=== PATIENT | female | born 1990 | race Two or more races ===

== ENCOUNTER 2018-03-25 16:48 | Emergency (ER) | payer OTHER ==
[~2018-03-25] VITALS: Ht 160 cm; Wt 88.5 kg
[~2018-03-25 16:48] MED LIST: ONDA4TAB10 SL; PANT40TA3 PO
[2018-03-25 17:00] VITALS: BP 137/79
[2018-03-25] MEDS ORDERED: CYCL10TA2 PO (17:45)
[2018-03-25] MEDS ORDERED: HYDR-971 PO (17:45)
[2018-03-25] MEDS ORDERED: NAPR-683 PO (17:45)
--- NOTE | 2018-03-25 17:45 | PHYS DOC ---
Past Medical History Past Medical History: No Pertinent History Past Surgical History: , Other Additional Past Surgical Histo: ovarian cyst removal Additional Information: Nonsmoker Alcohol Use: None Drug Use: None Adult General Chief Complaint Chief Complaint: LOWER BACK PAIN OR INJURY [facility] HPI Patient is a 28 year old female who presents with complaining of low back pain for 1 week. Patient complaining of intermittent episodes of low back pain with radiation to back of right thigh for 1 week that became more constant and getting worse today. Patient states the pain getting worse with movement and bending over. Patient states the pain is sharp and rated her pain 8/10. She denies urinary symptoms, fever and chills, back injury, history of back pain, urine and bowel incontinence, abdominal pain, focal neuro deficit. Patient states she took Advil today without improvement of her pain. Patient has history of hysterectomy. Review of Systems Review of Systems Constitutional: Denies fever or chills [] Eyes: Denies change in visual acuity, redness, or eye pain [] HENT: Denies nasal congestion or sore throat [] Respiratory: Denies cough or shortness of breath [] Cardiovascular: No additional information not addressed in HPI [] GI: Denies abdominal pain, nausea, vomiting, bloody stools or diarrhea [] : Denies dysuria or hematuria [] Musculoskeletal: Reports back pain, denies joint pain [] Integument: Denies rash or skin lesions [] Neurologic: Denies headache, focal weakness or sensory changes [] Endocrine: Denies polyuria or polydipsia [] All other systems were reviewed and found to be within normal limits, except as documented in this note. Current Medications Current Medications Current Medications Medications (Trade) Dose Ordered Sig/[facility] Start Time Stop Time Status Last Admin Dose Admin Acetaminophen/ Hydrocodone Bitart (Lortab 5/325) 1 tab 1X ONCE 03/25/18 18:00 03/25/18 18:01 DC 03/25/18 17:51 1 TAB Allergies Allergies Allergies Coded Allergies Type Severity Reaction Last Updated Verified No Known Drug Allergies 03/17/14 No Physical Exam Physical Exam Constitutional: Well developed, well nourished, mild distress, non-toxic appearance. [] HENT: Normocephalic, atraumatic. Eyes: PERRLA, EOMI, conjunctiva normal, no discharge. [] Neck: Normal range of motion, no tenderness, supple, no stridor. [] Cardiovascular:Heart rate regular rhythm, no murmur [] Lungs & Thorax: Bilateral breath sounds clear to auscultation [] Abdomen: Bowel sounds normal, soft, no tenderness, no masses, no pulsatile masses. [] Skin: Warm, dry, no erythema, no rash. [] Back: No midline tenderness, right paraspinal spasm and painfull range of motion , no CVA tenderness. [] Extremities: No tenderness, no cyanosis, no clubbing, ROM intact, no edema. [] Neurologic: Alert and oriented X 3, normal motor function, normal sensory function, no focal deficits noted. [] Psychologic: Affect normal, judgement normal, mood normal. [] Current Patient Data Vital Signs Vital Signs Date Time Temp Pulse Resp B/P (MAP) Pulse Ox O2 Delivery O2 Flow Rate FiO2 03/25/18 17:51 14 98 03/25/18 17:00 98.3 87 137/79 (98) Room Air 98.3 EKG EKG [] Radiology/Procedures Radiology/Procedures [] Course & Med Decision Making Course & Med Decision Making Evaluation of patient in ER showed 28-year-old female patient with complaining of low back pain intermittently for 1 week that getting more constant and painfull today. Patient had right paraspinal muscle spasm. Patient had history of hysterectomy and denied urinary symptom. Patient treated with [place] in ER and plan to discharge home with prescription of Flexeril and Naprosyn and [place]. Dragon Disclaimer Dragon Disclaimer This electronic medical record was generated, in whole or in part, using a voice recognition dictation system. Departure Departure Impression: Primary Impression: Acute lumbosacral myofascial strain Disposition: 01 HOME, SELF-CARE (at 1745) Condition: STABLE Referrals: MARICARMEN HUTSON (PCP) Patient Instructions: Lumbosacral Strain Additional Instructions: Apply ice on the back Follow-up with your primary care physician in 3-5 days Return to ER if not getting better Scripts Naproxen (NAPROSYN) 500 Mg Tablet 1 TAB PO BID for pain, #20 TAB Prov: XU SOLIS MD 03/25/18 Hydrocodone/Apap 5-325 (NORCO 5-325 TABLET) 1 Each Tablet 1 TAB PO PRN Q6HRS PRN for PAIN, #10 TAB 0 Refills Prov: XU SOLIS MD 03/25/18 Cyclobenzaprine Hcl (CYCLOBENZAPRINE HCL) 10 Mg Tablet 1 TAB PO TID for muscle pain, #30 TAB Prov: XU SOLIS MD 03/25/18 XU SOLIS MD Mar 25, 2018 17:45
[2018-03-25] MEDS ORDERED: HYDROcodone/APAP 5/325MG 1 TAB TABLET PO ONE (18:00)
== END 2018-03-25 17:56 | disposition home or self-care (01) ==
LOC: ER 16:48
DX: S33.5XXA Sprain of ligaments of lumbar spine, initial encounter (principal); Z90.710 Acquired absence of both cervix and uterus; X58.XXXA Exposure to other specified factors, initial encounter; Y93.89 Activity, other specified; Y92.89 Other specified places as the place of occurrence of the external cause; Y99.8 Other external cause status
CPT/HCPCS: 99283

== ENCOUNTER 2019-12-18 23:07 | Emergency (ER) | payer OTHER ==
[~2019-12-18] VITALS: Ht 160 cm; Wt 97.7 kg
[~2019-12-18 23:07] MED LIST changes: +CYCL10TA2 PO; +HYDR-3164 PO; +NAPR-683 PO; -PANT40TA3 PO; +PANT40TA77 PO
--- NOTE | 2019-12-18 23:47 | PHYS DOC ---
Past Medical History Past Medical History: No Pertinent History Past Surgical History: , Other Additional Past Surgical Histo: ovarian cyst removal, PARTIAL HYSTERECTOMY, WISDOME TEETH REMOVAL Smoking Status: Never Smoker Alcohol Use: None Drug Use: None General Adult EDM: Chief Complaint: FLANK PAIN HPI: HPI: Patient is a 29 year old female presents with 3-day history of right upper quadrant pain. Patient states the pain is pinching and stabbing and radiates to her back and into her right lower quadrant. Patient states she has had the pain frequently over the past but is more severe and more persistent this time. When she was in 2010 she was told she has gallstones. Patient has nausea but no fevers, chills, cough no shortness of breath. No urinary symptoms. Pain is currently 8 out of 10. Review of Systems: Review of Systems: Constitutional: Denies fever or chills. [] Eyes: Denies change in visual acuity. [] HENT: Denies nasal congestion or sore throat. [] Respiratory: Denies cough or shortness of breath. [] Cardiovascular: Denies chest pain or edema. [] GI: Complains of abdominal pain and nausea but no diarrhea : Denies dysuria. [] Musculoskeletal: Complains of right thoracic pain Integument: Denies rash. [] Neurologic: Denies headache, focal weakness or sensory changes. [] Endocrine: Denies polyuria or polydipsia. [] Lymphatic: Denies swollen glands. [] Psychiatric: Denies depression or anxiety. [] Heart Score: Risk Factors: Risk Factors: DM, Current or recent (<one month) smoker, HTN, HLP, family history of CAD, obesity. Risk Scores: Score 0 - 3: 2.5% MACE over next 6 weeks - Discharge Home Score 4 - 6: 20.3% MACE over next 6 weeks - Admit for Clinical Observation Score 7 - 10: 72.7% MACE over next 6 weeks - Early Invasive Strategies Current Medications: Current Medications Medications (Trade) Dose Ordered Sig/Uli Start Time Stop Time Status Last Admin Dose Admin Ketorolac Tromethamine (Toradol 15mg Vial) 15 mg 1X ONCE 12/19/19 00:00 12/19/19 00:01 Morphine Sulfate (Morphine Sulfate) 2 mg PRN Q15MIN PRN 12/18/19 23:45 12/19/19 23:44 Ondansetron HCl (Zofran) 4 mg 1X ONCE 12/19/19 00:00 12/19/19 00:01 Sodium Chloride 1,000 ml @ 1,000 mls/hr Q1H 12/19/19 00:00 12/19/19 00:59 Allergies: Allergies: Allergies Coded Allergies Type Severity Reaction Last Updated Verified No Known Drug Allergies 03/17/14 No Physical Exam: PE: Constitutional: Well developed, well nourished, no acute distress, non-toxic appearance. [] HENT: Normocephalic, atraumatic, bilateral external ears normal, no trismus nose normal. [] Eyes: PERRLA, EOMI, conjunctiva normal, no discharge. [] Neck: Normal range of motion, no tenderness, supple, no stridor. [] Cardiovascular:Heart rate regular rhythm, Lungs & Thorax: No respiratory distress Abdomen: , soft, tender to palpate right upper quadrant with mild guarding but no rebound no masses, no pulsatile masses. [] Skin: Warm, dry, no erythema, no rash. [] Back: No tenderness, no CVA tenderness. [] Extremities: No tenderness, no cyanosis, no clubbing, ROM intact, no edema. [] Neurologic: Alert and oriented X 3, normal motor function, normal sensory function, no focal deficits noted. [] Psychologic: Affect normal, judgement normal, mood normal. [] Current Patient Data: Labs: Laboratory Tests Test 12/18/19 23:23 12/18/19 23:34 12/18/19 23:55 12/19/19 00:31 Urine Collection Type Unknown Urine Color Yellow Urine Clarity Clear Urine pH 6.0 Urine Specific [place] 1.020 Urine Protein Negative mg/dL Urine Glucose (UA) Negative mg/dL Urine Ketones (Stick) Negative mg/dL Urine Blood Large Urine Nitrite Negative Urine Bilirubin Negative Urine Urobilinogen Dipstick 0.2 mg/dL Urine Leukocyte Esterase Negative Urine RBC 20-40 /HPF Urine WBC 1-4 /HPF Urine Squamous Epithelial Cells Mod /LPF Urine Bacteria Few /HPF Urine Mucus Mod /LPF Bedside Urine HCG, Qualitative Hcg negative White Blood Count 10.5 x10^3/uL Red Blood Count 4.57 x10^6/uL Hemoglobin 14.2 g/dL Hematocrit 41.6 % Mean Corpuscular Volume 91 fL Mean Corpuscular Hemoglobin 31 pg Mean Corpuscular Hemoglobin Concent 34 g/dL Red Cell Distribution Width 13.4 % Platelet Count 355 x10^3/uL Neutrophils (%) (Auto) 54 % Lymphocytes (%) (Auto) 36 % Monocytes (%) (Auto) 7 % Eosinophils (%) (Auto) 2 % Basophils (%) (Auto) 1 % Neutrophils # (Auto) 5.7 x10^3/uL Lymphocytes # (Auto) 3.8 x10^3/uL Monocytes # (Auto) 0.7 x10^3/uL Eosinophils # (Auto) 0.2 x10^3/uL Basophils # (Auto) 0.1 x10^3/uL Sodium Level 138 mmol/L Potassium Level 3.6 mmol/L Chloride Level 102 mmol/L Carbon Dioxide Level 27 mmol/L Anion Gap 9 Blood Urea Nitrogen 13 mg/dL Creatinine 0.7 mg/dL Estimated GFR (Cockcroft-Gault) 98.9 BUN/Creatinine Ratio 19 Glucose Level 94 mg/dL Calcium Level 9.6 mg/dL Total Bilirubin 0.4 mg/dL Aspartate Amino Transf (AST/SGOT) 33 U/L Alanine Aminotransferase (ALT/SGPT) 63 U/L Alkaline Phosphatase 118 U/L Total Protein 8.3 g/dL Albumin 3.9 g/dL Albumin/Globulin Ratio 0.9 Lipase 172 U/L Current Medications Medications (Trade) Dose Ordered Sig/Uli Route PRN Reason Start Time Stop Time Status Last Admin Dose Admin Morphine Sulfate (Morphine Sulfate) 2 mg PRN Q15MIN PRN IV/SQ PAIN GREATER THAN 3/10 12/18/19 23:45 12/19/19 02:45 DC 12/19/19 00:14 Sodium Chloride 1,000 ml @ 1,000 mls/hr Q1H IV 12/19/19 00:00 12/19/19 00:59 DC 12/19/19 00:11 Ondansetron HCl (Zofran) 4 mg 1X ONCE IVP 12/19/19 00:00 12/19/19 00:01 DC 12/19/19 00:11 Ketorolac Tromethamine (Toradol 15mg Vial) 15 mg 1X ONCE IVP 12/19/19 00:00 12/19/19 00:01 DC 8/5/20 00:12 Laboratory Tests Test 12/18/19 23:34 POC Urine HCG, Qualitative Hcg negative (Negative) Vital Signs: Vital Signs Date Time Temp Pulse Resp B/P (MAP) Pulse Ox O2 Delivery O2 Flow Rate FiO2 12/19/19 00:14 16 100 Room Air 12/18/19 23:36 98.5 78 16 132/74 (93) 100 Room Air 98.5 EKG: EKG: [] Radiology/Procedures: Radiology/Procedures: [][facility] [address] [place] [address] IMAGING REPORT Signed PATIENT: KAYCE JADE I ACCOUNT: [id number] : 1990 LOCATION: ER AGE: 29 SEX: F EXAM STATUS: REG ER ORD. PHYSICIAN: ADILIA GREGORY MD REASON: ruq PROCEDURE: ABDOMEN LTD INDICATION : Reason: ruq / Spl. Instructions: / History: COMPARISON: None TECHNIQUE: Multiple ultrasound images obtained through the abdomen in grayscale and color. FINDINGS: Liver: Echogenic. Portions are not well seen secondary to poor beam penetration. Gallbladder: Gallstones. IVC: Partially distended at level of liver. Common Bile Duct: 8 mm Pancreas: Largely obscured by bowel gas Right Kidney: No hydronephrosis. IMPRESSION: * Gallstones are visualized within the gallbladder. The patient does have some tenderness in the right upper quadrant. Would correlate with symptoms of cholecystitis given this finding and if further evaluation is desired nuclear hepatobiliary scan could further assess. * Liver is echogenic which can be seen with fatty infiltration. Electronically signed by: Katrin Connell MD (12/19/2019 12:37 AM) [id number] DICTATED and SIGNED BY: KATRIN CONNELL MD DATE: 12/19/19 0037 Course & Med Decision Making: Course & Med Decision Making Pertinent Labs and Imaging studies reviewed. (See chart for details) [] Patient reassessed at 1:50 AM. Patient feels significantly better. Patient has symptomatic cholelithiasis. No evidence of cholecystitis or biliary obstruction. Patient will be given referrals to a general surgeon. Return precautions have been given. Dragon Disclaimer: Kylie Disclaimer: This electronic medical record was generated, in whole or in part, using a voice recognition dictation system. Departure Departure Impression: Primary Impression: Symptomatic cholelithiasis Additional Impression: Right upper quadrant pain Disposition: 01 HOME, SELF-CARE Condition: STABLE Referrals: NO PCP (PCP) QUIANA BAUTISTA MD 2-3 days Patient Instructions: Biliary Colic Additional Instructions: EMERGENCY DEPARTMENT GENERAL DISCHARGE INSTRUCTIONS THANK YOU for coming to [facility] Emergency Department (ED) today and trusting us with your care. We trust that you had a positive experience in our Emergency Department. If you wish to speak to the department Management you can contact the roving department end finder at . YOUR FOLLOW UP INSTRUCTIONS ARE FOLLOWS: Do you have a private doctor? If you do not have a private doctor, please ask for a resource list of physicians or clinics that may be able to assist you with follow up care. The Emergency Physician has interpreted your x-rays. The X-ray specialist will also review them. If there is a change in the findings you will be notified in 48 hours when at all possible. A lab test or lab culture may have been done, your results will be reviewed and you will be notified if you need a change in treatment. ADDITIONAL INSTRUCTIONS AND INFORMATION Your care today has been supervised by a physician who is specially trained in emergency care. Many problems require more than one evaluation for a complete diagnosis and treatment. We recommend that you schedule your follow up appointment as recommended to ensure complete treatment of your illness or injury. If you are unable to obtain follow up care and continue to have a problem, or if your condition worsens we recommend that you return to the ED. We are not able to safely determine your condition over the phone nor are we able to give sound medical advice over the phone. For these safety reasons, if you call for medical advice we will ask you to come to the ED for further evaluation If you have any questions regarding these discharge instructions please call the ED at . SAFETY INFORMATION In the interest of safety, wellness, and injury prevention; we encourage you to wear your seatbelt, if you smoke; quit smoking, and we encourage your family to use protective helmet for bicycling and other sporting events that present an increased risk for head injury. IF YOUR SYMPTOMS WORSEN OR NEW SYMPTOMS DEVELOP, OR YOU HAVE CONCERNS ABOUT YOUR CONDITION; OR IF YOUR CONDITION WORSENS WHILE YOU ARE WAITING FOR YOUR FOLLOW UP APPOINTMENT; EITHER CONTACT YOUR PRIMARY CARE DOCTOR, THE PHYSICIAN WHOSE NAME AND NUMBER YOU WERE GIVEN, OR RETURN TO THE ED IMMEDIATELY. Scripts Ondansetron Hcl (ZOFRAN) 4 Mg Tablet 1 TAB PO PRN Q6-8HRS PRN for NAUSEA/VOMITING, #12 TAB Prov: ADILIA GREGORY MD 12/19/19 Hydrocodone/Apap 5-325 (NORCO 5-325 TABLET) 1 Each Tablet 1-2 EACH PO PRN Q6HRS PRN for PAIN, #15 as needed for pain Prov: ADILIA GREGORY MD 12/19/19 Justicifation of Admission Dx: Justifications for Admission: Justification of Admission Dx: N/A ADILIA GREGORY MD Dec 18, 2019 23:47
[2019-12-18 23:49] LABS: BILIRUBIN,URINE NEGATIVE (NEG); CLARITY,URINE CLEAR; COLOR,URINE YELLOW; NITRITE,URINE NEGATIVE (NEG); PROTEIN,URINE NEGATIVE (NEG-TRACE); UROBILINOGEN,URINE 0.2 mg/dL (0.2 mg/dL)
[2019-12-18 23:54] LABS: BACTERIA,URINE FEW /HPF (0-FEW); RBC,URINE 20-40 /HPF (0-2); SQUAMOUS EPITHELIAL CELL,UR MOD /LPF
[2019-12-19 00:05] LABS: BASO # 0.1 x10^3/uL (0.0-0.2); BASO % 1 % (0-3); EOS # 0.2 x10^3/uL (0.0-0.7); EOS % 2 % (0-3); HEMATOCRIT 41.6 % (36.0-47.0); HEMOGLOBIN 14.2 g/dL (12.0-15.5); LYMPH # 3.8 x10^3/uL (1.0-4.8); LYMPH % 36 % (24-48); MEAN CORPUSCULAR HEMOGLOBIN 31 pg (25-35); MEAN CORPUSCULAR HGB CONC 34 g/dL (31-37); MEAN CORPUSCULAR VOLUME 91 fL (79-100); MONO # 0.7 x10^3/uL (0.0-1.1); MONO % 7 % (0-9); NEUT # 5.7 x10^3/uL (1.8-7.7); NEUT % 54 % (31-73); PLATELET COUNT 355 x10^3/uL (140-400); RED BLOOD COUNT 4.57 x10^6/uL (3.50-5.40); RED CELL DISTRIBUTION WIDTH 13.4 % (11.5-14.5); WHITE BLOOD COUNT 10.5 x10^3/uL (4.0-11.0)
[2019-12-19] MEDS: IV NORMAL SALINE 1000ML BAG 1,000 ML IV SCH (00:11)
[2019-12-19] MEDS: ONDANSETRON PF 4 MG/2 ML VIAL. IVP ONE (00:11)
[2019-12-19] MEDS: KETOROLAC 15 MG/ML VIAL. IVP ONE (00:12)
[2019-12-19] MEDS: MORPHINE SULFATE 2 MG/ML VIAL. IV/SQ PRN (00:14)
--- NOTE | 2019-12-19 00:40 | RAD ---
INDICATION : Reason: ruq / Spl. Instructions: / History: COMPARISON: None TECHNIQUE: Multiple ultrasound images obtained through the abdomen in grayscale and color. FINDINGS: Liver: Echogenic. Portions are not well seen secondary to poor beam penetration. Gallbladder: Gallstones. IVC: Partially distended at level of liver. Common Bile Duct: 8 mm Pancreas: Largely obscured by bowel gas Right Kidney: No hydronephrosis. IMPRESSION: * Gallstones are visualized within the gallbladder. The patient does have some tenderness in the right upper quadrant. Would correlate with symptoms of cholecystitis given this finding and if further evaluation is desired nuclear hepatobiliary scan could further assess. * Liver is echogenic which can be seen with fatty infiltration. Electronically signed by: Carlos Kellogg MD (12/19/2019 12:37 AM) [id number]
[2019-12-19 00:51] LABS: CALCIUM 9.6 mg/dL (8.5-10.1); CREATININE 0.7 mg/dL (0.6-1.0); GFR 98.9; POTASSIUM 3.6 mmol/L (3.5-5.1)
[2019-12-19 01:00] LABS: ALBUMIN 3.9 g/dL (3.4-5.0); ALBUMIN/GLOBULIN RATIO 0.9 (1.0-1.7); TOTAL BILIRUBIN 0.4 mg/dL (0.2-1.0); TOTAL PROTEIN 8.3 g/dL (6.4-8.2)
[2019-12-19] MEDS ORDERED: ONDA4TAB7 PO (02:15)
[2019-12-19] MEDS ORDERED: HYDR-3164 PO (02:15)
[2019-12-19 02:27] VITALS: BP 112/60
== END 2019-12-19 02:40 | disposition home or self-care (01) ==
LOC: ER 23:07
DX: K80.20 Calculus of gallbladder without cholecystitis without obstruction (principal); R10.11 Right upper quadrant pain; R11.0 Nausea; Z98.890 Other specified postprocedural states; Z90.710 Acquired absence of both cervix and uterus
CPT/HCPCS: 36415; 76705; 80053; 81001; 81025; 83690; 85025; 96361; 96374; 96375; 99285; J1885; J2270; J2405; J7030